=== PATIENT | female | born 1990 | race Caucasian/White ===

== ENCOUNTER 2017-02-04 22:06 | Emergency (ER) | payer OTHER ==
[~2017-02-04] VITALS: Ht 154.9 cm; Wt 61.7 kg
--- NOTE | ~2017-02-04 | EKG ---
[address] [place] [address] ELECTROCARDIOGRAM REPORT Name: HERIBERTO DALE [id number] Admission: 02/04/17 Attend Phys: Discharge: 02/05/17 Date of : 86 Report #: [id number] THIS REPORT FOR: //name// [facility] ED Test Date: 2017-02-04 Test Time: 22:58:00 Pat Name: HERIBERTO DALE Department: Room: Gender: F Pest Control Technician: YESENAI : 1990 Requested By: Garett Pritchett Order Number: [id number] MD: Edilberto Dominguez Measurements Intervals [place] Rate: 100 P: 38 AK: 172 QRS: 51 QRSD: 78 T: 10 QT: 325 QTc: 420 Interpretive Statements Sinus tachycardia Borderline T abnormalities, anterior leads Compared to ECG 07/10/2013 00:43:08 T-wave abnormality now present Electronically Signed On 02-05-2017 9:28:22 CDT by Edilberto Dominguez [email or web address] <ELECTRONICALLY SIGNED> By: Edilberto Dominguez MD, [facility] 02/05/17 0928 D: 07/2257 57 Edilberto Dominguez MD, FACC /EPI
[~2017-02-04 22:06] MED LIST: AMLODIPINE BESYL5 MG PO; ARMOUR THYROID30 M1 PO; CYMBALTA30 MG PO; NEXIUM 40 MG CA40 M1 PO; PRILOSEC 20 MG20 MG PO; SERTRALINE HCL50 MG PO; YAZ
[2017-02-04] MEDS ORDERED: NORVASC2.5 MG PO (22:13)
[2017-02-04] MEDS ORDERED: SINGULAIR 10 MG10 M1 PO (22:13)
[2017-02-04] MEDS ORDERED: BENTYL 10 MG CA10 MG PO (22:13)
[2017-02-04 23:01] LABS: URINE BILIRUBIN NEGATIVE (Negative); URINE BLOOD NEGATIVE (Negative); URINE COLOR YELLOW; URINE GLUCOSE-RANDOM* NEGATIVE (Negative); URINE KETONES TRACE (Negative); URINE LEUKOCYTES-REFLEX TRACE (Negative); URINE PROTEIN (DIPSTICK) NEGATIVE (Negative); URINE SPECIFIC GRAVITY 1.025 (1.003-1.035); URINE UROBILINOGEN 0.2 E.U./dl (0.2-1.0)
[2017-02-04 23:10] LABS: HEMATOCRIT 42.2 % (37.0-47.0); HEMOGLOBIN 14.5 gm/dL (12.0-15.0); MCH 31.3 pg (26.0-34.0); MCHC 34.4 g/dL (28.0-37.0); MCV 91.1 fL (80.0-100.0); PLATELET COUNT 254 thou/uL (150-400); RBC 4.64 mil/uL (4.20-5.00); RDW 13.1 % (10.5-14.5); WBC 9.3 thou/uL (4.0-11.0)
[2017-02-04 23:18] LABS: MANUAL DIFF YES
[2017-02-04 23:24] LABS: ANION GAP 8 mmol/L (7-16); BUN 20 mg/dL (7-18); CALCIUM 8.7 mg/dL (8.5-10.1); CHLORIDE 101 mmol/L (98-107); CO2 28 mmol/L (21-32); GLUCOSE 107 mg/dL (74-106); POTASSIUM 3.8 mmol/L (3.5-5.1); SODIUM 137 mmol/L (136-145)
[2017-02-04 23:29] LABS: APTT 26.8 Seconds (24.5-32.8); PROTIME 10.4 Seconds (9.3-11.4)
[2017-02-04 23:30] LABS: ALBUMIN 3.6 g/dL (3.4-5.0); ALKALINE PHOSPHATASE 86 U/L (46-116); MAGNESIUM 1.7 mg/dL (1.8-2.4); SGOT 19 U/L (15-37); SGPT 23 U/L (30-65); TOTAL BILIRUBIN 0.6 mg/dL (<0.1-1.0); TOTAL PROTEIN 7.2 g/dL (6.4-8.2); TROPONIN-I < 0.04 ng/mL (<0.04-0.07)
[2017-02-04 23:42] LABS: TOTAL CELL COUNT 100
[2017-02-05] MEDS ORDERED: PRILOSEC 20 MG20 MG PO (01:07)
[2017-02-05 01:13] VITALS: BP 103/58
== END 2017-02-05 01:34 | disposition home or self-care (01) ==
LOC: ER 22:06
PROVIDERS: Emergency Medicine
DX: K22.4 Dyskinesia of esophagus (principal); K21.9 Gastro-esophageal reflux disease without esophagitis; K58.9 Irritable bowel syndrome, unspecified; J45.909 Unspecified asthma, uncomplicated; I10 Essential (primary) hypertension; F10.99 Alcohol use, unspecified with unspecified alcohol-induced disorder; Z88.8 Allergy status to other drugs, medicaments and biological substances